=== PATIENT | female | born 1950 | race Two or more races ===

== ENCOUNTER 2023-05-29 16:59 | Emergency (ER) | payer OTHER ==
[~2023-05-29] VITALS: Ht 157.5 cm; Wt 70.3 kg
[2023-05-29] MEDS ORDERED: ZESTRIL30 MG PO (17:17)
[2023-05-29] MEDS ORDERED: HYDRODIURIL12.5 MG PO (17:17)
[2023-05-29] MEDS ORDERED: ONDANSETRON HCL 2 MG/ML VIAL IV ONE (19:00)
[2023-05-29] MEDS ORDERED: PANTOPRAZOLE SODIUM 40 MG/VIAL VIAL IV PUSH ONE (19:00)
[2023-05-29] MEDS ORDERED: 0.9 % SODIUM CHLORIDE 1,000 ML IV ONE (19:00)
[2023-05-29 19:14] LABS: HEMOGLOBIN 15.6 g/dL (12.0-15.00); MEAN CORPUSCULAR HEMOGLOBIN 29.5 pg (27.00-32.0); MEAN CORPUSCULAR HGB CONC 33.9 g/dl (32.0-36.0); PLATELET COUNT 195 K/uL (150-450); RED BLOOD COUNT 5.29 M/uL (4.00-6.00); RED CELL DISTRIBUTION WIDTH 15.1 % (11.5-14.5)
[2023-05-29 19:36] LABS: ALBUMIN 3.6 gm/dL (3.4-5.0); BILIRUBIN TOTAL 0.41 mg/dL (0.3-1.2); CALCIUM 9.1 mg/dL (8.5-10.1); CREATININE SERUM 0.86 mg/dL (0.55-1.02); GFR 64.86; GLOBULINA 3.7 G/DL (2.4-3.5); POTASSIUM 4.33 mEq/L (3.5-5.1); TOTAL PROTEIN 7.3 gm/dL (6.4-8.2)
== END 2023-05-29 20:33 | disposition home or self-care (01) ==
LOC: ER 17:00
PROVIDERS: General Practice
DX: K52.9 Noninfective gastroenteritis and colitis, unspecified (principal); R11.10 Vomiting, unspecified; I10 Essential (primary) hypertension
CPT/HCPCS: 36415; 96365; 99282; J7030